=== PATIENT | female | born 1995 | race American Indian/Alaskan Native ===

== ENCOUNTER 2019-05-12 10:26 | Emergency (ER) | payer SELFPAY ==
--- NOTE | 2019-05-12 15:04 | Emergency Department Report ---
ED Medical Clearance HPI - General Chief complaint: Medical Clearance Stated complaint: ABD PAIN/POSS Time Seen by Provider: 05/12/19 14:54 Source: patient Mode of arrival: Ambulatory - History of Present Illness Initial comments: 24-year-old -[place] female reports much department complaining that she just found out she was by doing a home project tests and lites all she will she is a long. She reports no symptoms at this present time states she feels normal denies any nausea, vomiting, abdominal pain, chest pain, fever, chills, sweats, hemoptysis, hematemesis, hematochezia, vaginal noted discharge, dysuria, vaginal bleeding. States that she feels totally normal however would just like to know how falling she is a hypertensive she cannot recall when her last period was Alledged Intoxication: No Compliant with Home Medications: Yes Traumatic Symptoms: denies traumatic injury, other Associated Symptoms: other Treatments Prior to Arrival: none Allergies/Adverse reactions: Allergies Allergy/AdvReac Type Severity Reaction Status Date / Time No Known Allergies Allergy Unverified 05/12/19 10:29 ED Review of Systems ROS: Stated complaint: ABD PAIN/POSS Other details as noted in HPI Comment: All other systems reviewed and negative ED Past Medical Hx - Past Medical History Previous Medical History?: No - Surgical History Past Surgical History?: No - Social History Smoking Status: Current Every Day Smoker Substance Use Type: Alcohol ED Physical Exam - General Limitations: No Limitations General appearance: alert, in no apparent distress - Head Head exam: Present: atraumatic, normocephalic - Eye Eye exam: Present: normal appearance, PERRL, EOMI Pupils: Present: normal accommodation - ENT ENT exam: Present: normal exam, mucous membranes moist - Neck Neck exam: Present: normal inspection - Respiratory Respiratory exam: Present: normal lung sounds bilaterally. Absent: respiratory distress, wheezes, rales - Cardiovascular Cardiovascular Exam: Present: regular rate, normal rhythm. Absent: bradycardia, tachycardia, systolic murmur, diastolic murmur, rubs, gallop - GI/Abdominal GI/Abdominal exam: Present: soft, normal bowel sounds. Absent: distended, tenderness, guarding, diminished bowel sounds - Extremities Exam Extremities exam: Present: normal inspection, normal capillary refill - Back Exam Back exam: Present: normal inspection. Absent: CVA tenderness (R), CVA tenderness (L) - Neurological Exam Neurological exam: Present: alert, oriented X3, CN II-XII intact, normal gait - Psychiatric Psychiatric exam: Present: normal affect, normal mood. Absent: anxious, flat affect, manic - Skin Skin exam: Present: warm, dry, intact, normal color. Absent: rash, cyanosis, diaphoretic, erythema ED Course Vital Signs 05/12/19 10:31 Temperature 97.7 F Pulse Rate 87 Respiratory 16 Rate Blood Pressure 118/77 O2 Sat by Pulse 98 Oximetry ED Medical Decision Making - Medical Decision Making This 24-year-old asymptomatic -[place] female presents emergency department with suspicion of how far along she is in currently she has no abdominal pain despite the triage report. She was asked several times about evaluating her abdominal pain which she repeatedly stated that she had none. Patient has no vaginal bleeding, fever, pain, nausea, vomiting or other symptoms to suspect any urgent or emergent abdominal-pelvic Emergency condition. I discussed the need to follow-up with [facility] and also advised the patient to return to emergency department should she experience any pain or evidence symptoms and she Parmjit BlevinsZepeda is unsure of what to do at this present time patient is asymptomatic and denies ever having any abdominal abdominal symptoms which would make one suspicious for any acute abdominal processes with the exception of ED Disposition Clinical Impression: Disposition: Z-07 MED SCREENING EXAM-LEFT Is pt being admited?: No Does the pt Need Aspirin: No Condition: Stable Referrals: PRIMARY CARE, [Primary Care Provider] - 3-5 Days
[2019-05-12 15:19] LABS: HCG Qualitative,Urine Positive (Negative)
[2019-05-12 15:29] VITALS: BP 136/70
== END 2019-05-12 15:28 | disposition left against medical advice (07) ==
LOC: EDBD → ED 10:26
DX: O26.899 Other specified pregnancy related conditions, unspecified trimester (principal); R10.9 Unspecified abdominal pain; O99.330 Smoking (tobacco) complicating pregnancy, unspecified trimester; Z3A.00 Weeks of gestation of pregnancy not specified
CPT/HCPCS: 81025